=== PATIENT | male | born 1975 | race Hispanic/Latino ===

== ENCOUNTER 2024-03-26 07:09 | Emergency (ER) | payer BC, SELFPAY ==
--- NOTE | 2024-03-26 07:41 | RAD REPORT ---
EXAM: CT brain without contrast HISTORY: Dizziness COMPARISON: None TECHNIQUE: Multiple contiguous axial images were obtained and a CT of the brain without contrast.. Sagittal and coronal reconstruction performed. Automated exposure control, adjustment of the mA and/or kV according to patient size, and/or iterative reconstruction. Unless otherwise specified, incidental f indings do not require dedicated imaging follow-u FINDINGS: An intracranial bleed is not seen Ventricles are normal caliber. Mild cerebellar tonsillar ectopia No extra-axial fluid collection noted No significant hypodensity within the brain No fluid within the visualized sinuses or mastoids noted. IMPRESSION: No acute intracranial abnormality noted. If the patient's symptoms persist MRI of the brain would be recommended.
[2024-03-26 07:45] LABS: Absolute Eosinophils 0.1 K/uL (0-0.5); Absolute Lymphocytes (CBC) 1.3 K/uL (0.7-4.9); Absolute Monocytes 0.5 K/uL (0.1-1.3); Absolute Neutrophil 4.8 K/uL (1.8-8.0); Basophils % 0.7 % (0-1.3); Hematocrit 43.9 % (39.6-49.0); Hemoglobin 15.1 g/dL (13.6-17.9); Lymphocytes % 19.7 % (15.3-44.8); MCH 28.7 pg (27.0-35.0); MCHC 34.4 g/dL (32.0-36.0); MCV 83.4 fL (80-100); MPV 6.8 fL (7.6-11.3); Monocytes % 6.9 % (3.3-12.3); Neutrophils % 70.7 % (41.7-73.7); Nucleated Red Blood Cells % 0.2 % (0-0); Platelets 288 thou/uL (152-406); RBC Red Blood Cell Count 5.26 M/uL (4.33-5.43); Red Cell Distribution Width 13.5 % (12.1-15.2)
[2024-03-26 08:05] LABS: Anion Gap 7.6 mEq/L (5.0-15.0); Potassium 3.6 mEq/L (3.5-5.1); Troponin High Sensitivity 4.9 pg/mL (<58.9)
--- NOTE | 2024-03-26 08:21 | RAD REPORT ---
Procedure: Chest Single View HISTORY: Chest pain COMPARISON: none FINDINGS: The lungs appear clear of acute infiltrate. No significant pleural effusion noted. The heart is normal size. IMPRESSION: No acute abnormality is displayed.
--- NOTE | 2024-03-26 09:16 | EDPHYS ---
Physician Documentation [facility] Name: Lion Perez Jr Age: 48 yrs Sex: Male : 1975 Arrival Date: 03/26/2024 Time: 07:09 Bed 8 Private MD: ED Physician Yon Alejandra HPI: 03/26 07:37 This 48 yrs old Male presents to ER via EMS with complaints of hypertension. rn 07:37 The patient or guardian reports chest pain that is located primarily in the substernal rn area. Onset: this morning. The pain does not radiate. Associated signs and symptoms: Pertinent positives: dizziness, lightheadedness, Pertinent negatives: abdominal pain, cough, lower extremity swelling, palpitations. The chest pain is described as aching. Duration: The patient or guardian reports a single episode, that is now resolved. Modifying factors: The symptoms are alleviated by nothing. the symptoms are aggravated by nothing. Severity of pain: At its worst the pain was mild in the emergency department the pain has improved. Patient reports started at 0500 with mild chest ache, no radiation, associated with anxiousness, trembling of bilateral upper extremities and dizziness. EMS reports high blood pressure with a diastolic over 110. Patient has history of hypertension. Given 324 aspirin. Patient has improved with no longer feeling dizzy or chest pain. Still feels anxious.. Historical: - Allergies: 07:14 No Known Allergies; kc6 - Home Meds: 07:14 losartan 100 mg oral tablet 1 tab daily for hypertension [Active]; kc6 - PMHx: 07:14 Hypertensive disorder; Hypercholesterolemia; kc - PSHx: 07:14 None; kc6 - Immunization history:: Adult Immunizations up to date. - Infectious Disease History:: Denies. - Social history:: Smoking status: Patient denies any tobacco usage or history of. - Family history:: not pertinent. - Hospitalizations: : No recent hospitalization is reported. ROS: 07:37 Constitutional: Negative for fever, chills, and weight loss, Eyes: Negative for injury, rn pain, redness, and discharge, Neck: Negative for injury, pain, and swelling, Cardiovascular: Negative for palpitations, and edema, Respiratory: Negative for shortness of breath, cough, wheezing, and pleuritic chest pain, Abdomen/GI: Negative for abdominal pain, nausea, vomiting, diarrhea, and constipation, MS/Extremity: Negative for injury and deformity, Skin: Negative for injury, rash, and discoloration, Neuro: Negative for headache, weakness, numbness, tingling, and seizure, Exam: 07:37 Constitutional: This is a well developed, well nourished patient who is awake, alert, rn and in no acute distress. Head/Face: Normocephalic, atraumatic. Eyes: Pupils equal round and reactive to light, extra-ocular motions intact. Cardiovascular: Regular rate and rhythm. No pulse deficits. Respiratory: No increased work of breathing, no retractions or nasal flaring. Abdomen/GI: Soft, non-tender MS/ Extremity: Pulses equal, no cyanosis. Neuro: Awake and alert, GCS 15, oriented to person, place, time, and situation. Cranial nerves II-XII grossly intact. Motor strength 5/5 in all extremities. Sensory grossly intact. Cerebellar exam normal. Normal gait. 09:35 ECG was reviewed by the Attending Physician. rn Vital Signs: 07:13 BP 137 / 85; Pulse 76; Resp 18 S; Pulse Ox 98% on R/A; Pain 0/10; kc6 08:05 BP 141 / 87; Pulse 76; Resp 16 S; Pulse Ox 96% on R/A; kc6 09:22 BP 135 / 90; Pulse 78; Resp 18 S; Pulse Ox 98% on R/A; kc6 07:13 Pain Scale: Adult kc6 MDM: 07:13 Medical Screening Exam initiated rn 09:14 Differential diagnosis: acute pericarditis, anxiety, costochondritis, esophagitis, rn gastritis, pneumothorax, stable angina. HEART Score: History: Slightly Suspicious (0), ECG: Normal (0), Age: > 45 and < 65 years (1), Risk Factors: No Risk Factors Known (0), Troponin: < or = 1 x Normal Limit (0), Total Score = 1. Data reviewed: vital signs, nurses notes, lab test result(s), EKG, radiologic studies, CT scan, plain films, and as a result, I will discharge patient. Counseling: I had a detailed discussion with the patient and/or guardian regarding the historical points, exam findings, and any diagnostic results supporting the discharge/admit diagnosis, lab results, radiology results, the need for outpatient follow up, to return to the emergency department if symptoms worsen or persist or if there are any questions or concerns that arise at home. Special discussion: I discussed with the patient/guardian in detail that at this point there is no indication for admission to the hospital. It is understood, however, that if the symptoms persist or worsen the patient needs to return immediately for re-evaluation. Based on the history and exam findings, there is no indication for further emergent testing or inpatient evaluation. I discussed with the patient/guardian the need to see the primary care provider for further evaluation of the symptoms. ED course: No acute findings and workup today. CT head negative. Chest x-ray images negative for pneumothorax or other acute abnormality per my interpretation. Recommend blood pressure measurements in the morning and evening and taking that to his PCP. Without intervention blood pressure is 135/90 and no further hypertensive episodes. Symptoms have resolved since arrival. Likely a blood pressure problem.. 03/26 07:14 Order name: Basic Metabolic Panel; Complete Time: 08: rn 03/26 07:14 Order name: CBC with Diff; Complete Time: : rn 03/26 07:14 Order name: NT PRO-BNP; Complete Time: : rn 03/26 07:14 Order name: Troponin HS; Complete Time: : rn 03/26 07:14 Order name: XRAY Chest (1 view); Complete Time: 08:48 rn 03/26 07:14 Order name: CT Head Brain wo Cont; Complete Time: 08: rn 03/26 07:14 Order name: Cardiac monitoring; Complete Time: : rn 03/26 07:14 Order name: EKG - Nurse/Tech; Complete Time: rn 03/26 07:14 Order name: IV Saline Lock; Complete Time: rn 03/26 07:14 Order name: Labs collected and sent; Complete Time: : rn 03/26 07:14 Order name: O2 Per Protocol; Complete Time: rn 03/26 07:14 Order name: O2 Sat Monitoring; Complete Time: : rn EC:35 Rate is 74 beats/min. Rhythm is regular. QRS [place] is Normal. VA interval is normal. QRS rn interval is normal. QT interval is normal. No Q waves. T waves are Normal. No ST changes noted. Clinical impression: NSR w/ Non-specific ST/T Changes. Interpreted by me. Reviewed by me. Administered Medications: No medications were administered Disposition Summary: 03/26/24 09:16 Discharge Ordered Notes: Location: Home rn Problem: new rn Symptoms: have improved rn Condition: Stable rn Diagnosis - Essential (primary) hypertension rn - Chest pain, unspecified rn - Dizziness and giddiness rn Followup: rn - With: Private Physician - When: As needed - Reason: Recheck today's complaints, Re-evaluation by your physician Discharge Instructions: - Discharge Summary Sheet rn - Nonspecific Chest Pain, Adult rn - Dizziness rn - Hypertension, Adult rn - Managing Your Hypertension rn Forms: - Medication Reconciliation Form rn - Antibiotic communications marketing intern - Prescription Opioid Use rn - Patient Portal Instructions rn - Leadership Thank You Letter rn Signatures: Dispatcher [employer] EDYon Mcginnis MD MD rn Campbell, Kaitlyn, RN RN kc6 Corrections: (The following items were deleted from the chart) 07:14 07:14 BASIC METABOLIC PANEL+C.LAB.BRZ ordered. EDMS EDMS 07:14 07:14 CBC+H.LAB.BRZ ordered. EDMS EDMS 07:14 07:14 PROBNP+C.LAB.BRZ ordered. EDMS EDMS 07:14 07:14 Troponin High Sensitivity+C.LAB.BRZ ordered. EDMS EDMS 07:14 07:14 Chest Single View+RAD.RAD.BRZ ordered. EDMS EDMS 07:14 07:14 Head Brain Wo Cont+CT.RAD.BRZ ordered. EDMS EDMS
--- NOTE | 2024-03-26 09:16 | ER ---
Nurse's Notes [facility] Name: Lion Perez Jr Age: 48 yrs Sex: Male : 1975 Arrival Date: 03/26/2024 Time: 07:09 Bed 8 Private MD: Diagnosis: Essential (primary) hypertension;Chest pain, unspecified;Dizziness and giddiness Presentation: 03/26 07:13 Chief complaint: EMS states: left sided chest pain with dizziness and "shakiness" that kc6 started at about [address] to work. Coronavirus screen: At this time, the client does not indicate any symptoms associated with coronavirus-19. Ebola Screen: No symptoms or risks identified at this time. Initial Sepsis Screen: Does the patient meet any 2 criteria? No. Patient's initial sepsis screen is negative. Does the patient have a suspected source of infection? No. Patient's initial sepsis screen is negative. Risk Assessment: Do you want to hurt yourself or someone else? Patient reports no desire to harm self or others. Onset of symptoms was March 26, 2024. 07:13 Method Of Arrival: EMS: [facility] [place] [address] 07:13 Acuity: MARCIA 3 kc6 07:14 Care prior to arrival: Medication(s) given: ASA, 81 mg, x 4, IV initiated. 18 GA, in kc6 the left hand. Triage Assessment: 07:14 General: Appears in no apparent distress. comfortable, well groomed, well developed, kc6 Behavior is calm, cooperative, appropriate for age. Pain: Complains of pain in anterior aspect of left upper chest. EENT: No signs and/or symptoms were reported regarding the EENT system. Neuro: Level of Consciousness is awake, alert, obeys commands, Oriented to person, place, time, situation, Appropriate for age. Cardiovascular: Reports chest pain, Capillary refill < 3 seconds Rhythm is regular. Respiratory: Airway is patent Trachea midline Respiratory effort is even, unlabored, Respiratory pattern is regular, symmetrical. GI: No signs and/or symptoms were reported involving the gastrointestinal system. : No signs and/or symptoms were reported regarding the genitourinary system. Derm: No signs and/or symptoms reported regarding the dermatologic system. Skin is intact, is healthy with good turgor, Skin is pink, warm \\T\\ dry. Musculoskeletal: No signs and/or symptoms reported regarding the musculoskeletal system. Circulation, motion, and sensation intact. Capillary refill < 3 seconds, Range of motion: intact in all extremities. Historical: - Allergies: 07:14 No Known Allergies; kc6 - Home Meds: 07:14 losartan 100 mg oral tablet 1 tab daily for hypertension [Active]; kc6 - PMHx: 07:14 Hypertensive disorder; Hypercholesterolemia; 6 - PSHx: 07:14 None; kc6 - Immunization history:: Adult Immunizations up to date. - Infectious Disease History:: Denies. - Social history:: Smoking status: Patient denies any tobacco usage or history of. - Family history:: not pertinent. - Hospitalizations: : No recent hospitalization is reported. Screenin:16 [facility] ED Fall Risk Assessment (Adult) History of falling in the last 3 months, kc6 including since admission No falls in past 3 months (0 pts) Confusion or Disorientation No (0 pts) Intoxicated or Sedated No (0 pts) Impaired Gait No (0 pts) Mobility Assist Device Used No (0 pt) Altered Elimination No (0 pt) Score/Fall Risk Level 0 - 2 = Low Risk Oriented to surroundings. Abuse screen: Denies threats or abuse. Denies injuries from another. Nutritional screening: No deficits noted. Tuberculosis screening: No symptoms or risk factors identified. Assessment: 07:16 Reassessment: please see triage. kc6 08:05 Reassessment: Patient appears in no apparent distress at this time. No changes from [facility] previously documented assessment. Patient and/or family updated on plan of care and expected duration. Pain level reassessed. Patient is alert, oriented x 3, equal unlabored respirations, skin warm/dry/pink. 08:57 Reassessment: Patient appears in no apparent distress at this time. No changes from [facility] previously documented assessment. Patient and/or family updated on plan of care and expected duration. Pain level reassessed. Patient is alert, oriented x 3, equal unlabored respirations, skin warm/dry/pink. 09:22 Reassessment: Patient appears in no apparent distress at this time. No changes from [facility] previously documented assessment. Patient and/or family updated on plan of care and expected duration. Pain level reassessed. Patient is alert, oriented x 3, equal unlabored respirations, skin warm/dry/pink. Patient states feeling better. Patient states symptoms have improved. Vital Signs: 07:13 BP 137 / 85; Pulse 76; Resp 18 S; Pulse Ox 98% on R/A; Pain 0/10; kc6 08:05 BP 141 / 87; Pulse 76; Resp 16 S; Pulse Ox 96% on R/A; kc6 09:22 BP 135 / 90; Pulse 78; Resp 18 S; Pulse Ox 98% on R/A; kc6 07:13 Pain Scale: Adult kc6 ED Course: 07:13 Patient arrived in ED. kc6 07:13 Yon Alejandra MD is Attending Physician. rn 07:14 Triage completed. kc6 07:14 Arm band placed on. kc6 07:16 Patient has correct armband on for positive identification. Bed in low position. Call kc6 light in reach. Side rails up X2. cable hooker on. Pulse ox on. NIBP on. Door closed. Noise minimized. Lights dimmed. Pillow given. 07:16 Maintain EMS IV. Dressing intact. Good blood return noted. Site clean \\T\\ dry. Gauge \\T\\ rina 6 site: 18G LHAND. Flushed with 10 mL NS. Patient maintains SpO2 saturation greater than 95% on room air. 07:17 Kendra Zamora, GIRISH is Primary Nurse. kc6 07:26 CT Head Brain wo Cont In Process Unspecified. EDMS 07:34 XRAY Chest (1 view) In Process Unspecified. EDMS 09:22 No provider procedures requiring assistance completed. IV discontinued, intact, kc6 bleeding controlled, No redness/swelling at site. Pressure dressing applied. Administered Medications: No medications were administered Medication: 09:23 VIS not applicable for this client. kc6 Outcome: 09:16 Discharge ordered by . rn 09:23 Discharged to home ambulatory, with friend, kc6 09:23 Condition: improved 09:23 Discharge instructions given to patient, Instructed on discharge instructions, follow up and referral plans. Demonstrated understanding of instructions, follow-up care, 09:23 Patient left the ED. kc6 Signatures: Dispatcher [employer] EDMS Yon Alejandra MD MD rn Campbell, Kaitlyn, RN RN kc6
[2024-03-26 10:20] VITALS: BP 135/90; O2SAT 98
--- NOTE | 2024-03-26 14:46 | EKG ---
Test Date: 2024-03-26 Test Time: 07:28:42 First Officer: RALPH MEASUREMENT RESULTS: Intervals: Rate: 74 NH: 120 QRSD: 98 QT: 398 QTc: 441 [place]: P: 9 NH: 120 QRS: 68 T: 38 INTERPRETIVE STATEMENTS: Sinus rhythm with premature atrial complexes Otherwise normal ECG No previous ECG available for comparison Electronically Signed On 03-26-24 14:45:24 CDT by Roberto Wilks
== END 2024-03-26 09:23 | disposition home or self-care (01) ==
LOC: ER 07:09
DX: I10 Essential (primary) hypertension (principal); R42 Dizziness and giddiness
CPT/HCPCS: 36415; 70450; 71045; 80048; 83880; 84484; 85025; 93005; 99284